=== PATIENT | female | born 2000 | race Caucasian/White ===

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

== ENCOUNTER 2021-04-13 22:29 | Emergency (ER) | payer MEDICAID, SELFPAY ==
[2021-04-13 22:30] VITALS: BP 137/81; PULSE 103; RESP 16; TEMP 36.2; O2SAT 98; BMI 23.7
--- NOTE | 2021-04-13 22:50 | EDS_ITS ---
HPI History of Present Illness Chief Complaint: Nausea/Vomiting/Diarrhea Informant: patient Onset/Context/Timing Onset: - (Worse today) Context: Gradual Onset Timing: Waxes and wanes Narrative Narrative: Patient presents secondary to nausea, vomiting, and diarrhea associated with epigastric pain. She states she has been having symptoms intermittently for the past couple months but they became much worse tonight. No fever or chills. She states that she eats a lot of hot sauce and spicy foods and thinks that is the cause of her symptoms. PFSH PFSH Home Medications omeprazole 20 mg PO DAILY 28 Days #28 cap 04/14/21 [Rx Last Taken Unknown] Allergy/AdvReac Type Severity Reaction Status Date / Time amoxicillin Allergy Hives Verified 04/13/21 22:30 venom-honey bee Allergy Other Verified 04/13/21 22:30 [bee venom (honey bee)] Social History Smoking Status: Never smoker ROS ROS ED Constitutional Constitutional ED: Denies chills or fever(s) Eyes Eyes: Denies change in vision ENT ENT ED: Denies sore throat Cardiovascular Cardiovascular: Denies chest pain Respiratory/Chest Respiratory/Chest: Denies cough or dyspnea Gastrointestinal Gastrointestinal: Reports abdominal pain, diarrhea, nausea and vomiting Genitourinary Genitourinary ED: Denies dysuria Musculoskeletal Musculoskeletal: Denies back pain Integumentary Denies rash Neurologic Neurologic: Denies headache(s) or weakness Allergic/Immunologic Allergic/Immunologic ED: Denies urticaria EXAM Physical Exam Const Vital Signs: 04/13/21 22:30 04/13/21 23:10 Temperature 97.2 F L Temperature Source Temporal Pulse Rate 103 H Respiratory Rate 16 16 Blood Pressure 137/81 H Blood Pressure Mean 99 Pulse Ox 98 Oxygen Delivery Method Room Air Positive well nourished and well developed General Appearance ED: well developed HEENT Reports normocephalic and head/scalp atraumatic Eyes PERRL and EOMs intact bilaterally Neck supple Chest Wall inspection of chest normal and palpation of chest normal Resp normal respiratory effort and clear to auscultation bilaterally Cardio regular rate and regular rhythm GI Auscultation: hypoactive bowel sounds Palpation: soft and tender epigastric (Mild tenderness in the epigastrium.); Negative for guarding or rebound tenderness present Extremity normal to inspection Neuro oriented x3 and no sensory deficits noted Sensorium / Orientation: alert Motor Exam: strength 5/5 throughout Psych mental status grossly normal Skin no rashes or lesions noted MDM MDM MDM Narrative Medical decision making narrative: Patient was given Bentyl and Protonix. Lab work obtained. Lab Data Labs: Laboratory Results - last 24 hr 04/13/21 04/13/21 23:02 23:02 WBC 7.0 RBC 4.28 Hgb 13.0 Hct 38.8 MCV 90.7 MCH 30.4 MCHC 33.5 RDW Std Deviation 40.6 RDW Coeff of Carrillo 12.3 Plt Count 216 MPV 10.0 Immature Gran % (Auto) 0.700 Neut % (Auto) 56.4 Lymph % (Auto) 36.2 [place] % (Auto) 6.0 Eos % (Auto) 0.6 Baso % (Auto) 0.1 Absolute Neuts (auto) 3.9 Absolute Lymphs (auto) 2.52 Nucleated RBC % 0 Sodium 140 Potassium 3.9 Chloride 106 Carbon Dioxide 30.0 Anion Gap 4 L BUN 16 Creatinine 0.95 Estim Creat Clear Calc 87.69 Est GFR (MDRD) Af Amer 96 Est GFR (MDRD) Non-Af 79 BUN/Creatinine Ratio 16.9 Glucose 119 H Calcium 9.1 Total Bilirubin 0.60 Direct Bilirubin 0.19 AST 33 ALT 22 Alkaline Phosphatase 26 L Total Protein 7.2 Albumin 3.9 Globulin 3.3 Lipase 73 Treatment and Re-Evaluation Comments:: Lab work unremarkable. On repeat evaluation she is resting comfortably. I believe she likely has either gastritis or gastric ulcer. She will be treated with Prilosec and referred to GI for follow-up as needed. Discharge Plan Triage Chief Complaint: Nausea/Vomiting/Diarrhea ED Provider: Rosette Mariano Dx/Rx/DC Orders Clinical Impression: Gastritis Instructions: ED PEPTIC ULCER vs GASTRITIS Prescriptions: New omeprazole 20 mg capsule,delayed release(DR/EC) 20 mg PO DAILY 28 Days Qty: 28 RF: 0 Primary Care Provider: Care Physician,No Primary Referrals: Friend,Enoch, DO [STAFF PHYSICIAN] - As Needed Care Physician,No Primary [Primary Care Provider] - Disposition Disposition: Home, Self Care
[2021-04-13] MEDS: Dicyclomine 10 MG Capsule 20 MG PO (23:04)
[2021-04-13 23:10] VITALS: RESP 16
[2021-04-13 23:26] LABS: Absolute Lymphocyte Count 2.52 X10^3/uL (0.83-4.51); Absolute Neutrophil Count 3.9 X10^3/uL (2.0-7.7); Basophil# 0.01 X10^3/uL; Basophil% 0.1 % (0-1); Eosinophil# 0.04 X10^3/uL; Eosinophils% 0.6 % (0-5); Hematocrit 38.8 % (37-47); Lymphocyte # 2.52 X10^3/ul (0.83-4.51); Lymphocyte % 36.2 % (19-41); Mean Corp Hgb Conc 33.5 g/dL (32-36); Mean Corpuscular Hgb 30.4 pg (27.0-32.0); Mean Corpuscular Volume 90.7 fL (81-99); Monocyte# 0.42 X10^3/uL; NRBC Flagged by Analyzer 0 % (0-5); Neutrophil # 3.93 X10^3/uL (2.7-7.7); Neutrophil % 56.4 % (47-70); Platelet Count 216 K/mm3 (150-450); RBC Distribution Width CV 12.3 % (11.6-14.6); RBC Distribution Width SD 40.6 fl (35.1-43.9); Red Blood Count 4.28 M/mm3 (4.2-5.4)
[2021-04-14] LABS: AST(SGOT) 33 U/L (15-37); Alanine Aminotransfer ALT/SGPT 22 U/L (13-56); Albumin, Serum 3.9 g/dL (3.2-5.0); Alkaline Phosphatase 26 U/L (45-117); Anion Gap 4 (5-15); BUN 16 mg/dL (7-18); BUN/Creat Ratio 16.9 RATIO (10-20); Bilirubin, Direct 0.19 mg/dL (0.00-0.30); Calcium,Total 9.1 mg/dL (8.5-10.1); Chloride 106 mmol/L (98-107); Creatinine, Serum 0.95 mg/dL (0.55-1.02); EST Glomerular Filtration Rate 79 mL/min (>60); Est Glom Filt Rate - Afr Amer 96 mL/min (>60); Estimated Creatinine Clearance 87.69 ml/min; Globulin 3.3 g/dL (2.2-4.2); Glucose 119 mg/dL (74-106); Lipase 73 U/L (73-393); Potassium 3.9 mmol/L (3.5-5.1); Protein, Total 7.2 g/dL (6.4-8.2); Sodium Level 140 mmol/L (136-145)
[2021-04-14 00:40] VITALS: BP 137/81; PULSE 103; RESP 16; TEMP 36.2; O2SAT 98
== END 2021-04-14 00:44 | disposition home or self-care (01) ==
PROVIDERS: Emergency Provider Emergency Medicine
DX: K29.70 Gastritis, unspecified, without bleeding (principal); Z79.899 Other long term (current) drug therapy
CPT/HCPCS: 80048; 80076; 83690; 85025; 96365; 99283; A4216

== ENCOUNTER 2021-06-17 20:30 | Emergency (ER) | payer MEDICAID, SELFPAY ==
[2021-06-17 20:30] VITALS: BP 114/74; PULSE 84; RESP 18; TEMP 36.6; O2SAT 100; BMI 20.9
[2021-06-17] MEDS: 0.9% Normal Saline 1,000 ML 1000 ML IV (22:27)
[2021-06-17] MEDS: Mag Hydrox/Al Hydrox/Simeth 30 ML UDC PO (22:27)
[2021-06-17 22:34] LABS: Absolute Lymphocyte Count 0.97 X10^3/uL (0.83-4.51); Absolute Neutrophil Count 9.3 X10^3/uL (2.0-7.7); Basophil# 0.02 X10^3/uL; Basophil% 0.2 % (0-1); Eosinophil# 0.05 X10^3/uL; Eosinophils% 0.5 % (0-5); Hematocrit 35.8 % (37-47); Hemoglobin 12.3 g/dL (12.0-15.0); Lymphocyte # 0.97 X10^3/ul (0.83-4.51); Lymphocyte % 8.9 % (19-41); Mean Corp Hgb Conc 34.4 g/dL (32-36); Mean Corpuscular Hgb 30.4 pg (27.0-32.0); Mean Corpuscular Volume 88.4 fL (81-99); Mean Platelet Vol. 10.5 fl (6.2-12.0); Monocyte# 0.48 X10^3/uL; Monocyte% 4.4 % (0-10); NRBC Flagged by Analyzer 0 % (0-5); Neutrophil # 9.32 X10^3/uL (2.7-7.7); Neutrophil % 85.8 % (47-70); Platelet Count 200 K/mm3 (150-450); RBC Distribution Width CV 11.9 % (11.6-14.6); RBC Distribution Width SD 38.1 fl (35.1-43.9); Red Blood Count 4.05 M/mm3 (4.2-5.4); White Blood Count 10.9 K/mm3 (4.4-11.0)
[2021-06-17 22:49] LABS: Internal QC Validated? YES +Cl - CLEAR BKGD; Pregnancy, Serum, hCG Quali. NEGATIVE Negative
[2021-06-17 22:51] LABS: ALB/GLOB Ratio 1.3 RATIO (0.9-2.4); AST(SGOT) 69 U/L (15-37); Alanine Aminotransfer ALT/SGPT 42 U/L (13-56); Albumin, Serum 3.8 g/dL (3.2-5.0); Alkaline Phosphatase 34 U/L (45-117); Anion Gap 6 (5-15); BUN 11 mg/dL (7-18); BUN/Creat Ratio 14.6 RATIO (10-20); Calcium,Total 9.2 mg/dL (8.5-10.1); Chloride 106 mmol/L (98-107); Creatinine, Serum 0.75 mg/dL (0.55-1.02); EST Glomerular Filtration Rate 103 mL/min (>60); Est Glom Filt Rate - Afr Amer 125 mL/min (>60); Estimated Creatinine Clearance 110.45 ml/min; Globulin 2.9 g/dL (2.2-4.2); Glucose 128 mg/dL (74-106); Lipase 80 U/L (73-393); Potassium 3.8 mmol/L (3.5-5.1); Protein, Total 6.7 g/dL (6.4-8.2); Sodium Level 139 mmol/L (136-145)
[2021-06-17 23:18] LABS: Bacteria 0 SEEN /hpf (None Seen); Mucous, Urine 0 SEEN /hpf (<or=2+); Red Blood Cells-Urine 0 SEEN /hpf (0-5); Squamous Epithelial Cells - UA 0 SEEN /hpf (5-10); White Blood Cells 0 SEEN /hpf (0-5)
[2021-06-17 23:26] LABS: Color, Urine Yellow (Yellow); Glucose, Dipstick Normal (Normal); Ketone-Dipstick Negative (Negative); Leukocyte Esterase-Dipstick Negative /ul (Negative); Nitrite-Dipstick Negative (Negative); Occult Blood-Urine Negative /ul (Negative); Protein-Dipstick 15 mg/dl (Negative); Urine Bilirubin Dipstick Negative (Negative); Urine Clarity Clear (Clear); Urine Urobilinogen Normal (Normal); Urine pH 6.5 (5.0 - 8.0)
--- NOTE | 2021-06-18 00:02 | ED.VIS.GI ---
HPI HPI - GI History of Present Illness Chief Complaint: Abd Pain Informant: patient Abdominal Pain/Flank Pain Onset: Hours (1) Context: Sudden Onset Timing: Continuous Quality: Burning Location: RUQ Worsened by: Nothing Relieved by: - (Vomiting, heating pad) Nausea/Vomiting/Emesis GI Symptom: Positive for Nausea and Vomiting Quality: Negative for Coffee ground and Hematemesis Diarrhea/Melena/Hematochezia GI Symptom: Negative for Diarrhea, Melena and Hematochezia Associated Symptoms Associated Symptoms: Negative for Dysuria, Frequency and Hematuria Narrative Narrative: Patient presents with abdominal pain that began approxi-1 hour prior to arrival. Patient states her pain is burning. Patient states it began rather suddenly. Patient states it has been constant. Patient states it is worse over the right upper quadrant. Patient states it is better after vomiting. Patient states that heating pad also helps with it. Patient admits to some nausea and vomiting. Patient denies any hematemesis or coffee-ground emesis. Patient denies any diarrhea, melena, or hematochezia. Patient denies any urinary complaints. [facility] Medical History Stomach ulcer Home Medications omeprazole 20 mg PO DAILY PRN 06/17/21 [History Last Taken Unknown] Allergy/AdvReac Type Severity Reaction Status Date / Time amoxicillin Allergy Hives Verified 06/17/21 20:33 venom-honey bee Allergy Other Verified 06/17/21 20:33 [bee venom (honey bee)] Social History Smoking Status: Current every day smoker tobacco type: e-cigarettes ROS ROS ED Constitutional Constitutional ED: Denies chills or fever(s) Eyes Eyes: Denies blurry vision or change in vision ENT ENT ED: Denies rhinorrhea or sore throat Cardiovascular Cardiovascular: Denies chest pain or palpitations Respiratory/Chest Respiratory/Chest: Denies cough or dyspnea Gastrointestinal Gastrointestinal: Reports abdominal pain, nausea and vomiting; Denies diarrhea or melena Genitourinary Genitourinary ED: Denies dysuria or hematuria Musculoskeletal Musculoskeletal: Denies back pain or neck pain Integumentary Denies abscess or rash Neurologic Neurologic: Denies headache(s) or weakness Allergic/Immunologic Allergic/Immunologic ED: Denies mouth swelling or urticaria EXAM Physical Exam Const Vital Signs: 06/17/21 20:30 Temperature 98 F Temperature Source Temporal Pulse Rate 84 Respiratory Rate 18 Blood Pressure 114/74 Blood Pressure Mean 87 Pulse Ox 100 Oxygen Delivery Method Room Air Positive well nourished and well developed General Appearance ED: well developed HEENT Reports moist mucous membranes Neck supple and no JVD Resp normal respiratory effort and clear to auscultation bilaterally Cardio regular rate, regular rhythm and no murmurs GI normal to inspection, nondistended, normoactive bowel sounds and non-distended Auscultation: normoactive bowel sounds Palpation: soft and tender RUQ; Negative for guarding or rebound tenderness present Extremity normal to inspection General Extremety ED: Negative for edema or tenderness General Extremity: Negative for edema Neuro oriented x3, CN's II-XII intact bilaterally and no sensory deficits noted Sensorium / Orientation: alert Motor Exam: strength 5/5 throughout Psych mental status grossly normal Skin no rashes or lesions noted MDM MDM MDM Narrative Medical decision making narrative: Patient was given IV fluids. Patient was given a GI cocktail. CBC was within normal limits. Comprehensive metabolic profile was normal. Lipase was normal. Serum hCG was negative. Urinalysis does not show any evidence of urinary tract infection. Patient was advised of her findings. Patient is feeling better on reevaluation. Patient was instructed to take her omeprazole daily as prescribed. Patient was instructed to follow-up with her primary care physician in 5 to 7 days. Patient understood and was agreeable with the plan. All questions were answered. Lab Data Attestation: I reviewed the patient's lab results. Labs: Laboratory Results - last 24 hr 06/17/21 06/17/21 06/17/21 22:28 22:28 22:28 WBC 10.9 RBC 4.05 L Hgb 12.3 Hct 35.8 L MCV 88.4 MCH 30.4 MCHC 34.4 RDW Std Deviation 38.1 RDW Coeff of Carrillo 11.9 Plt Count 200 MPV 10.5 Immature Gran % (Auto) 0.200 Neut % (Auto) 85.8 H Lymph % (Auto) 8.9 L [place] % (Auto) 4.4 Eos % (Auto) 0.5 Baso % (Auto) 0.2 Absolute Neuts (auto) 9.3 H Absolute Lymphs (auto) 0.97 Nucleated RBC % 0 Sodium 139 Potassium 3.8 Chloride 106 Carbon Dioxide 27.0 Anion Gap 6 BUN 11 Creatinine 0.75 Estim Creat Clear Calc 110.45 Est GFR (MDRD) Af Amer 125 Est GFR (MDRD) Non-Af 103 BUN/Creatinine Ratio 14.6 Glucose 128 H Calcium 9.2 Total Bilirubin 0.80 AST 69 H ALT 42 Alkaline Phosphatase 34 L Total Protein 6.7 Albumin 3.8 Globulin 2.9 Albumin/Globulin Ratio 1.3 Lipase 80 Serum , Qual NEGATIVE Urine Color Urine Clarity Urine pH Ur Specific [place] Urine Protein Urine Glucose (UA) Urine Ketones Urine Occult Blood Urine Nitrite Urine Bilirubin Urine Urobilinogen Ur Leukocyte Esterase Urine RBC Urine WBC Ur Squamous Epith Cells Urine Bacteria Urine Mucus 06/17/21 23:00 WBC RBC Hgb Hct MCV MCH MCHC RDW Std Deviation RDW Coeff of Carrillo Plt Count MPV Immature Gran % (Auto) Neut % (Auto) Lymph % (Auto) [place] % (Auto) Eos % (Auto) Baso % (Auto) Absolute Neuts (auto) Absolute Lymphs (auto) Nucleated RBC % Sodium Potassium Chloride Carbon Dioxide Anion Gap BUN Creatinine Estim Creat Clear Calc Est GFR (MDRD) Af Amer Est GFR (MDRD) Non-Af BUN/Creatinine Ratio Glucose Calcium Total Bilirubin AST ALT Alkaline Phosphatase Total Protein Albumin Globulin Albumin/Globulin Ratio Lipase Serum , Qual Urine Color Yellow Urine Clarity Clear Urine pH 6.5 Ur Specific [place] 1.010 Urine Protein 15 H Urine Glucose (UA) Normal Urine Ketones Negative Urine Occult Blood Negative Urine Nitrite Negative Urine Bilirubin Negative Urine Urobilinogen Normal Ur Leukocyte Esterase Negative Urine RBC 0 SEEN Urine WBC 0 SEEN Ur Squamous Epith Cells 0 SEEN Urine Bacteria 0 SEEN Urine Mucus 0 SEEN Discharge Plan Triage Chief Complaint: Abd Pain ED Provider: Zefreino Witt Dx/Rx/DC Orders Clinical Impression: Abdominal pain Instructions: ED Abdominal Pain Unkn Cause Fem, ED PEPTIC ULCER vs GASTRITIS Prescriptions: No Action omeprazole 20 mg capsule,delayed release(DR/EC) 20 mg PO DAILY PRN (Reason: Stomach Upset) RF: 0 Primary Care Provider: Mary Carpenter NP Referrals: Mary Carpenter RN OUTPATIENT SURGERY, RN OUTPATIENT SURGERY-C [Primary Care Provider] - 3-5 Days Disposition Disposition: Home, Self Care
== END 2021-06-18 00:12 | disposition home or self-care (01) ==
PROVIDERS: Emergency Provider Emergency Medicine; PCP Clinical Nurse Specialist
DX: R10.9 Unspecified abdominal pain (principal); R11.2 Nausea with vomiting, unspecified; F17.210 Nicotine dependence, cigarettes, uncomplicated
CPT/HCPCS: 80053; 81001; 83690; 84703; 85025; 96360; 99284; J7030; A4216

== ENCOUNTER 2021-09-13 07:41 | Observation (INO) | payer MEDICAID, SELFPAY ==
[2021-09-13 07:43] VITALS: BP 104/73; PULSE 67; RESP 17; TEMP 35.6; O2SAT 100; BMI 21.1
--- NOTE | 2021-09-13 08:21 | US_ITS ---
STUDY: ABDOMINAL ULTRASOUND - RIGHT UPPER QUADRANT REASON FOR VISIT: Female, 21 years old . Right upper quadrant pain. TECHNIQUE: Ultrasound evaluation of the right upper quadrant was performed with real-time and static lucas-scale imaging. TECHNICAL QUALITY: Adequate. COMPARISON: None. FINDINGS: Liver: The liver measures 15.1 cm. There is normal echogenicity of the liver. The bile ducts are within normal limits. There is hepatic color flow. The direction of portal flow is hepatopetal. There is no demonstrated mass lesion. Gallbladder: Normal distended gallbladder. The gallbladder wall is thickened and measures 4 mm. There is a positive sonographic Moralez''s sign. There is no pericholecystic fluid. There are multiple echogenic structures within the gallbladder, consistent with multiple gallstones. Common Bile Duct (C.B.D.): The common bile duct is dilated and measures 10 mm. Pancreas: Normal size of the head, body and tail of the pancreas. There is normal echogenicity of the pancreas. There is a 3.7 cm x 3.1 cm hypodensity in the tail portion the pancreas. Focal pancreatitis should be ruled out. Right Kidney: Normal size of the right kidney. The right kidney measures 12.1 cm x 4 cm x 3.5 cm. Normal renal cortex. The right cortex measures 1.5 cm. There is no demonstrated renal mass or cyst. There is no right hydronephrosis. US/Gallbladder IMPRESSION: Multiple gallstones and thickened gallbladder wall. Dilated common bile duct. 3.7 cm x 3.1 cm focal hypodensity in the tail portion of the pancreas. Localized pancreatitis should be ruled out. Electronically Signed: Wiley Hernandez MD at 9:25 EST ,
[2021-09-13 08:32] LABS: Absolute Lymphocyte Count 2.06 X10^3/uL (0.83-4.51); Basophil# 0.03 X10^3/uL; Basophil% 0.7 % (0-1); Eosinophil# 0.19 X10^3/uL; Eosinophils% 4.2 % (0-5); Hematocrit 38.1 % (37-47); Hemoglobin 12.6 g/dL (12.0-15.0); Lymphocyte # 2.06 X10^3/ul (0.83-4.51); Lymphocyte % 45.9 % (19-41); Mean Corp Hgb Conc 33.1 g/dL (32-36); Mean Corpuscular Hgb 30.6 pg (27.0-32.0); Mean Corpuscular Volume 92.5 fL (81-99); Mean Platelet Vol. 9.8 fl (6.2-12.0); Monocyte# 0.21 X10^3/uL; Monocyte% 4.7 % (0-10); NRBC Flagged by Analyzer 0 % (0-5); Neutrophil # 1.99 X10^3/uL (2.7-7.7); Neutrophil % 44.3 % (47-70); Platelet Count 168 K/mm3 (150-450); RBC Distribution Width CV 12.2 % (11.6-14.6); RBC Distribution Width SD 42.1 fl (35.1-43.9); Red Blood Count 4.12 M/mm3 (4.2-5.4); White Blood Count 4.5 K/mm3 (4.4-11.0)
[2021-09-13 08:42] LABS: ALB/GLOB Ratio 1.2 RATIO (0.9-2.4); AST(SGOT) 60 U/L (15-37); Alanine Aminotransfer ALT/SGPT 46 U/L (13-56); Albumin, Serum 3.7 g/dL (3.2-5.0); Alkaline Phosphatase 27 U/L (45-117); Anion Gap 6 (5-15); BUN 13 mg/dL (7-18); BUN/Creat Ratio 15.5 RATIO (10-20); Calcium,Total 9.1 mg/dL (8.5-10.1); Chloride 107 mmol/L (98-107); Creatinine, Serum 0.84 mg/dL (0.55-1.02); EST Glomerular Filtration Rate 91 mL/min (>60); Est Glom Filt Rate - Afr Amer 110 mL/min (>60); Estimated Creatinine Clearance 99.18 ml/min; Glucose 132 mg/dL (74-106); Lipase 92 U/L (73-393); Potassium 3.5 mmol/L (3.5-5.1); Protein, Total 6.7 g/dL (6.4-8.2); Sodium Level 142 mmol/L (136-145)
[2021-09-13 08:44] LABS: Internal QC Validated? YES +Cl - CLEAR BKGD; Pregnancy, Urine Negative Negative
--- NOTE | 2021-09-13 09:14 | ED.VIS.GI ---
HPI HPI - GI History of Present Illness Chief Complaint: Abd Pain Informant: patient Narrative Narrative: Patient is a 21 old female presenting with recurrent epigastric abdominal pain. Patient states has been having it off and on for some months. She is been seen in the ER and told she likely stomach ulcers and was put on omeprazole. She states she has been taking it intermittently lately is been having worsening abdominal pain. She states she feels fine right now however when she woke up this morning she was sweating and had nausea. No vomiting reported. States the pain is in her epigastric region and slightly to the right. She did take omeprazole this morning. She states the box and not to take it more than 6 weeks so she had stopped taking it recently. She is never seen a GI doctor or surgeon for her abdominal pain. Yesterday she notes she ate [employer] wings, 2 hotdogs and Scottish fries. She states normally her pain is worse in the evening and not usually bad in the morning. No other complaints at this time. [facility] Medical History (Updated 09/13/21 @ 15:[address] Amanda Britt DO) GERD (gastroesophageal reflux disease) Smoker Substance abuse Home Medications omeprazole 20 mg PO DAILY PRN 06/17/21 [History Last Taken 09/13/21] Hair,Nails and Skin Vitamin 1 tab PO/SL DAILY 09/13/21 [History Last Taken 09/13/21] Allergy/AdvReac Type Severity Reaction Status Date / Time amoxicillin Allergy Hives Verified 09/13/21 07:42 venom-honey bee Allergy Other Verified 09/13/21 07:42 [bee venom (honey bee)] Family History (Updated 09/13/21 @ 13:38 by Shantel Jesus) Other Family history of hypertension in father Social History Smoking Status: Heavy Smoker (>10/day) ROS ROS ED Constitutional Constitutional ED: Denies chills or fever(s) Cardiovascular Cardiovascular: Denies chest pain or palpitations Respiratory/Chest Respiratory/Chest: Denies dyspnea Gastrointestinal Gastrointestinal: Reports abdominal pain and nausea; Denies constipation, diarrhea or vomiting Genitourinary Genitourinary ED: Denies dysuria or hematuria Musculoskeletal Musculoskeletal: Denies arthralgias, back pain or myalgias Integumentary Denies rash Psychiatric Psychiatric: Denies depression EXAM Physical Exam Const Vital Signs: 09/13/21 07:43 09/13/21 10:22 09/13/21 12:13 Temperature 96.0 F L 98.1 F Temperature Source Temporal Oral Pulse Rate 67 81 67 Respiratory Rate 17 16 17 Blood Pressure 104/73 106/71 95/63 Blood Pressure Mean 83 82 73 Blood Pressure Source Blood Pressure Position Blood Pressure Location Pulse Ox 100 100 100 Oxygen Delivery Method Room Air Room Air Room Air 09/13/21 12:15 Temperature 98.0 F Temperature Source Oral Pulse Rate 67 Respiratory Rate 16 Blood Pressure 95/63 Blood Pressure Mean 73 Blood Pressure Source Monitor Blood Pressure Position Semi-Fowlers Blood Pressure Location Left Arm Pulse Ox 100 Oxygen Delivery Method Room Air Positive well nourished and well developed General Appearance ED: well developed and NAD HEENT normocephalic and atraumatic Eyes PERRL and EOMs intact bilaterally Neck supple and no JVD Resp normal respiratory effort and clear to auscultation bilaterally Cardio regular rate, regular rhythm and no murmurs GI non-tender and non-distended GI Narrative: Negative Moralez sign Auscultation: normoactive bowel sounds Palpation: soft; Negative for guarding or rigid Back/Spine no CVA tenderness Extremity full ROM General Extremety ED: Negative for edema General Extremity: Negative for edema Neuro Sensorium / Orientation: alert, oriented to person, oriented to place and oriented to time Motor Exam: Negative for general weakness Psych mental status grossly normal Skin Lesions: no lesions Rashes: no rashes MDM MDM MDM Narrative Medical decision making narrative: Patient evaluated for recurrent right upper quadrant/epigastric abdominal pain. Patient had a very fatty meal yesterday and had worsening pain today. She is never had any imaging of her abdomen so I will add on a right upper quadrant ultrasound. CT shows multiple gallstones with thickened gallbladder wall and dilated common bile duct as well as a questionable area of localized pancreatitis. CT obtained as patient does not know that she has had unintentional weight loss and has abnormal pancreatic findings on her ultrasounds. CT is consistent with gallstones, dilated common bile duct and hepatic system and a possible passed biliary stone. Patient does start to have more pain in the ER. Her lab work is largely unremarkable. She will be admitted for surgical management of cholecystitis to surgical service. She is agreeable this plan of care. Plan is for cholecystectomy and intraoperative cholangiogram. Lab Data Labs: Laboratory Results - last 24 hr 09/13/21 09/13/21 09/13/21 08:05 08:05 08:31 WBC 4.5 RBC 4.12 L Hgb 12.6 Hct 38.1 MCV 92.5 MCH 30.6 MCHC 33.1 RDW Std Deviation 42.1 RDW Coeff of Carrillo 12.2 Plt Count 168 MPV 9.8 Immature Gran % (Auto) 0.200 Neut % (Auto) 44.3 L Lymph % (Auto) 45.9 H [place] % (Auto) 4.7 Eos % (Auto) 4.2 Baso % (Auto) 0.7 Absolute Neuts (auto) 2.0 Absolute Lymphs (auto) 2.06 Nucleated RBC % 0 Sodium 142 Potassium 3.5 Chloride 107 Carbon Dioxide 29.0 Anion Gap 6 BUN 13 Creatinine 0.84 Estim Creat Clear Calc 99.18 Est GFR (MDRD) Af Amer 110 Est GFR (MDRD) Non-Af 91 BUN/Creatinine Ratio 15.5 Glucose 132 H Calcium 9.1 Total Bilirubin 0.70 AST 60 H ALT 46 Alkaline Phosphatase 27 L Total Protein 6.7 Albumin 3.7 Globulin 3.0 Albumin/Globulin Ratio 1.2 Lipase 92 Urine Test Negative Radiography Diagnostic Testing: Clinical Impression(s) from Imaging Studies Gallbladder Ultrasound 09/13/21 08:21 IMPRESSION: Multiple gallstones and thickened gallbladder wall. Dilated common bile duct. 3.7 cm x 3.1 cm focal hypodensity in the tail portion of the pancreas. Localized pancreatitis should be ruled out. Electronically Signed: Wiley Hernandez MD at 9:25 EST , Abdomen/Pelvis CT 09/13/21 10:01 IMPRESSION: Contracted stone filled gallbladder. Dilated intrahepatic biliary ducts. Dilated common bile duct down to the insertion into the second portion of the duodenum. There is a 6.5 mm rounded calcific density in the small bowel loop in the right mid abdomen. A recently passed gallstone should be excluded. This has the potential of causing gallstone ileus. Electronically Signed: Wiley Hernandez MD at 10:30 EST , Discharge Plan Dx/Rx/DC Orders Clinical Impression: Cholecystitis Disposition Disposition: Acute Care Hospital [facility] Discharge Date/Time: 09/13/21 12:44
[2021-09-13] MEDS: Ondansetron 4 MG/2 ML Vial IV ×2 (09:29→16:30)
--- NOTE | 2021-09-13 10:01 | CT_ITS ---
STUDY: CT ABDOMEN AND PELVIS WITH CONTRAST REASON FOR EXAM: Female, 21 years old. RUQ pain, abd normal US RADIATION DOSAGE (If Supplied By Facility): CTDIvol = ( 5.16 ) mGy, DLP = ( 275.11 ) mGycm TECHNIQUE: Transaxial images were obtained from the dome of the diaphragm to the symphysis pubis without oral contrast. IV 100mL Isovue-300 was administered. Sagittal and coronal images were reconstructed. Individualized dose optimization techniques were used for this CT. COMPARISON: None. FINDINGS: The visualized lung bases are unremarkable. The visualized portions of the heart are within normal limits. There is evidence of a dilated intrahepatic biliary ducts. Dilated common bile duct. And measures 1.3 cm maximum transverse dimension. It is dilated down to the second portion of the duodenum. A tiny stone in the distal portion of the common bile duct cannot be excluded. The gallbladder is contracted. Multiple stones are seen within the gallbladder lumen. There is a 6.5 mm rounded calcific density in the mid small bowel loop on the right side. A recently passed gallstone cannot be excluded. Normal spleen. Normal pancreas. Normal bilateral adrenal glands. Normal right kidney. Normal left kidney. Normal visualized stomach. Normal small intestine. Normal colon. The appendix is visualized and appears normal. Normal abdominal aorta. Normal inferior vena cava. Normal retroperitoneum. Normal urinary bladder. Follicles are seen in both ovaries. IUD is seen within the endometrium. Normal abdominal wall. Normal osseous structures. CT/Abdomen/Pelvis W IV Cont ONLY IMPRESSION: Contracted stone filled gallbladder. Dilated intrahepatic biliary ducts. Dilated common bile duct down to the insertion into the second portion of the duodenum. There is a 6.5 mm rounded calcific density in the small bowel loop in the right mid abdomen. A recently passed gallstone should be excluded. This has the potential of causing gallstone ileus. Electronically Signed: Wiley Hernandez MD at 10:30 EST ,
[2021-09-13] MEDS: Morphine 4 MG/ML Syringe IV (10:21)
[2021-09-13 10:22] VITALS: BP 106/71; PULSE 81; RESP 16; O2SAT 100
--- NOTE | 2021-09-13 11:54 | NURSING ---
MED SURG OBS BORTZ CHOLECYSTITIS
[2021-09-13 12:13] VITALS: BP 95/63; PULSE 67; RESP 17; TEMP 36.7; O2SAT 100
[2021-09-13 12:15] VITALS: BP 95/63; PULSE 67; RESP 16; TEMP 36.7; O2SAT 100; BMI 21.1
--- NOTE | 2021-09-13 12:30 | HP.PCM_ITS ---
HPI - General General Date of Admission: 09/13/21 HPI Narrative CRISTAL CEBALLOS, is a 21 F who presents with complaints of acute-onset RUQ/epigastric pain that awoke her out of sleep approximately 0600 this AM. Symptoms come after a BBQ meal for dinner yesterday. She states this is her 4th or 5th such episode with this complaint and she has had to present for ER evaluation each time due to the intensity. She believes the pain symptoms first began approximately of 2020. This pain is frequently associated with nausea and she had a bout of emesis earlier prior to her presentation. She admits that this pain has now largely resolved after morphine administration. Workup is remarkable for normal CBC without evidence of L shift, CMP with no transaminitis and low alk phos, normal lipase. RUQ US showed stone-filled gallbladder with thickened gallbladder wall and dilated common bile duct to 10mm. Mention was also made of a possible cyst within the pancreas. Patient notes that she has experienced a 30lbs weight loss since these symptoms started. She states this has been unintentional and she has been unable to fully explain this as losing her baby weight since she delivered her son 15months ago. She denies any associated food fear. CT Ab/Pelvis was obtained after the latter history was provided and to obtain valderrama detail on the pancreatic parenchyma. This showed dilation of the intra and extrahepatic biliary ducts with evidence of a radioopaque object transiting the right-sided small bowel consistent with a passed gallstone. [facility] Medical History (Updated 09/13/21 @ 14:[address] Sacha Martin MD) GERD (gastroesophageal reflux disease) Smoker Substance abuse Home Medications omeprazole 20 mg PO DAILY PRN 06/17/21 [History Last Taken 09/13/21] Hair,Nails and Skin Vitamin 1 tab PO/SL DAILY 09/13/21 [History Last Taken 09/13/21] Allergy/AdvReac Type Severity Reaction Status Date / Time amoxicillin Allergy Hives Verified 09/13/21 07:42 venom-honey bee Allergy Other Verified 09/13/21 07:42 [bee venom (honey bee)] Family History (Updated 09/13/21 @ 13:38 by Shantel Jesus) Other Family history of hypertension in father Social History Smoking Status: Heavy Smoker (>10/day) Vital Signs Vital Signs Vital Signs: 09/13/21 07:43 09/13/21 10:22 09/13/21 12:13 Temperature 96.0 F L 98.1 F Temperature Source Temporal Oral Pulse Rate 67 81 67 Respiratory Rate 17 16 17 Blood Pressure 104/73 106/71 95/63 Blood Pressure Mean 83 82 73 Blood Pressure Source Blood Pressure Position Blood Pressure Location Pulse Ox 100 100 100 Oxygen Delivery Method Room Air Room Air Room Air 09/13/21 12:15 Temperature 98.0 F Temperature Source Oral Pulse Rate 67 Respiratory Rate 16 Blood Pressure 95/63 Blood Pressure Mean 73 Blood Pressure Source Monitor Blood Pressure Position Semi-Fowlers Blood Pressure Location Left Arm Pulse Ox 100 Oxygen Delivery Method Room Air Weight Weight: 130 lb 11.746 oz Body Mass Index (BMI) 21.1 Physical Exam Const alert and oriented x3 Constitutional Narrative: mild distress/tearful GI GI Narrative: slender, no scars Inspection: Negative for abdominal distention Palpation: tender RUQ and Moralez's sign Results Lab / Micro Data Result Diagrams: 09/13/21 08:05 09/13/21 08:05 Labs: Laboratory Results - last 24 hr 09/13/21 08:05: WBC 4.5, RBC 4.12 L, Hgb 12.6, Hct 38.1, MCV 92.5, MCH 30.6, MCHC 33.1, RDW Std Deviation 42.1, RDW Coeff of Carrillo 12.2, Plt Count 168, MPV 9.8, Immature Gran % (Auto) 0.200, Neut % (Auto) 44.3 L, Lymph % (Auto) 45.9 H, [place] % (Auto) 4.7, Eos % (Auto) 4.2, Baso % (Auto) 0.7, Absolute Neuts (auto) 2.0, Absolute Lymphs (auto) 2.06, Nucleated RBC % 0 09/13/21 08:05: Sodium 142, Potassium 3.5, Chloride 107, Carbon Dioxide 29.0, Anion Gap 6, BUN 13, Creatinine 0.84, Estim Creat Clear Calc 99.18, Est GFR (MDRD) Af Amer 110, Est GFR (MDRD) Non-Af 91, BUN/Creatinine Ratio 15.5, Glucose 132 H, Calcium 9.1, Total Bilirubin 0.70, AST 60 H, ALT 46, Alkaline Phosphatase 27 L, Total Protein 6.7, Albumin 3.7, Globulin 3.0, Albumin/Globulin Ratio 1.2, Lipase 92 09/13/21 08:31: Urine Test Negative Radiology Impression Gallbladder Ultrasound 09/13/21 08:21 IMPRESSION: Multiple gallstones and thickened gallbladder wall. Dilated common bile duct. 3.7 cm x 3.1 cm focal hypodensity in the tail portion of the pancreas. Localized pancreatitis should be ruled out. Electronically Signed: Wiley Hernandez MD at 9:25 EST , Abdomen/Pelvis CT 09/13/21 10:01 IMPRESSION: Contracted stone filled gallbladder. Dilated intrahepatic biliary ducts. Dilated common bile duct down to the insertion into the second portion of the duodenum. There is a 6.5 mm rounded calcific density in the small bowel loop in the right mid abdomen. A recently passed gallstone should be excluded. This has the potential of causing gallstone ileus. Electronically Signed: Wiley Hernandez MD at 10:30 EST , Assessment & Plan Assessment/Plan (1) Cholecystitis: PLAN: Pt is 21 yo F w RUQ pain, N/V, cholelithiasis with GB wall thick ening and positive sonographic moralez sign. Furthermore, pt has dilation of intra and extrahepatic biliary ducts concerning for recent common duct obstruction. Given these findings I recommended admission with IV antibiotics and cholecystectomy with intraoperative cholangiogram. Patient is accepting of this recommendation and plan will be to proceed to OR tomorrow (09/14/21) for this procedure given that she is being bumped for a higher acuity patient. Charges/Coding Visit Charges Inpatient E&M: 02330 Init Hosp L2
--- NOTE | 2021-09-13 12:54 | EKG12_ITS ---
Test Reason : PRE OP Blood Pressure : / mmHG Vent. Rate : 051 BPM Atrial Rate : 051 BPM P-R Int : 094 ms QRS Dur : 086 ms QT Int : 452 ms P-R-T Axes : -03 054 056 degrees QTc Int : 416 ms Sinus bradycardia with short KS Otherwise normal ECG No previous ECGs available Confirmed by PARKER ESQUIVEL, WILY ([id number]), staff editor LYN AIKEN ([id number]) on 09/18/2021 11:28:48 AM Referred By: BRAYAN Confirmed By:WILY CANALES MD
[2021-09-13 13:07] VITALS: BMI 21.1
--- NOTE | 2021-09-13 14:47 | SUR.PREOP ---
patients surgery is being moved to 09/14/[address] Martin. patient transferred to bed and transported to [facility] – [place], [place]
[2021-09-13 14:48] VITALS: BMI 21.1
[2021-09-13] MEDS: 0.9% Normal Saline 1,000 ML 125 ML IV (15:12)
[2021-09-13] MEDS: Ciprofloxacin 400 MG/200 ML BAG 200 MG IV ×2 (15:12→20:53)
[2021-09-13 15:13] VITALS: BP 106/67; PULSE 64; RESP 16; TEMP 36.5; O2SAT 100
[2021-09-13 21:00] VITALS: BP 106/69; PULSE 68; RESP 16; TEMP 36.8; O2SAT 99
[2021-09-14] VITALS (10 sets, daily range): BP systolic 97–117; BP diastolic 56–78; PULSE 55–89; RESP 16–18; TEMP 36.3–37.4; O2SAT 93–100; BMI 21.1
--- NOTE | 2021-09-14 | GALL_PTH ---
PATIENT: CRISTAL CEBALLOS LOC: MS3 U#:[id number] AGE/SX: 21/F ROOM: MS315 RE09/13/[address]: Dr. Sacha Martin MD : [id number] BED: 1 DIS: 09/15/2021 SPEC #: [id number] RECD: 09/15/21 07:01 STATUS: IGLESIA BRUSHHoward #: [id number] PAVEL: 09/14/21 00:[address]: Sacha Martin DEPT: SURGICAL PATHOLOGY RECD BY: Craig Leon ENTERED: 09/15/21 10:07 SP TYPE: STAN YOUNG DR: IRAIS Turner Tissues: Gallbladder, NOS Procedures: Surgery Specimen Level III HEADER OPERATION: Laparoscopic cholecystectomy with IOC PRE-OP DIAGNOSIS: Cholecystitis TISSUE SUBMITTED: Gallbladder MICROSCOPIC DIAGNOSIS Gallbladder, cholecystectomy: Mild chronic cholecystitis and cholelithiasis. SJ:kirby 09/18/2021 MICROSCOPIC DESCRIPTION Slides are reviewed. GROSS DESCRIPTION Received is one container labeled with the patient's name and designated gallbladder. The specimen consists of a gallbladder measuring 12 cm in length and up to 4.5 cm in diameter. The external surface is pink-pires, smooth and glistening for the most part. Focally it is granular, hemorrhagic and contains cautery artifact. The gallbladder contains green-yellow mucoid bile and multiple irregular yellowish-green stones measuring in aggregate 4 x 3.5 x 0.5 cm and 0.2 to 0.5 cm in greatest dimension. The mucosa is bile-stained and without any mass lesions. The gallbladder wall measures up to 0.1 cm in thickness. Senior Telecommunications Specialist sections from the gallbladder and the cystic duct are submitted in one cassette. / SJ:rg 09/15/2021 :3 CPT: 44317
[2021-09-14] MEDS: 0.9% Normal Saline 1,000 ML 125 ML IV ×3 (01:03→17:01)
[2021-09-14 06:45] LABS: ALB/GLOB Ratio 1.2 RATIO (0.9-2.4); AST(SGOT) 144 U/L (15-37); Alanine Aminotransfer ALT/SGPT 246 U/L (13-56); Albumin, Serum 3.1 g/dL (3.2-5.0); Alkaline Phosphatase 34 U/L (45-117); Anion Gap 6 (5-15); BUN 8 mg/dL (7-18); BUN/Creat Ratio 11.6 RATIO (10-20); Calcium,Total 8.7 mg/dL (8.5-10.1); Chloride 112 mmol/L (98-107); Creatinine, Serum 0.69 mg/dL (0.55-1.02); EST Glomerular Filtration Rate 114 mL/min (>60); Est Glom Filt Rate - Afr Amer 138 mL/min (>60); Estimated Creatinine Clearance 120.74 ml/min; Globulin 2.6 g/dL (2.2-4.2); Glucose 86 mg/dL (74-106); Magnesium 1.9 mg/dL (1.6-2.6); Phosphorus 3.6 mg/dL (2.5-4.9); Potassium 3.6 mmol/L (3.5-5.1); Protein, Total 5.7 g/dL (6.4-8.2); Sodium Level 142 mmol/L (136-145)
--- NOTE | 2021-09-14 07:57 | PCM.PN.SRG ---
Subjective Subjective Patient seen and examined at bedside. She states she feels much better than yesterday with no recurrence of her acute pain. Her appetite has remained depressed but she denies any nausea with the liquids she tried yesterday. Her mother is present at bedside and offers a few questions regarding her daughter's diagnosis and care plan. Objective Data Objective Data Vital Signs: Vital Signs Temp Pulse Resp BP Pulse Ox 98.2 F 68 16 108/78 100 09/14/21 03:00 09/14/21 03:00 09/14/21 03:00 09/14/21 03:00 09/14/21 03:00 Oxygen Delivery Method Room Air Weight: 130 lb 11.746 oz Body Mass Index (BMI) 21.1 Intake & Output: Intake and Output for Last 24 Hours 09/12/21 09/13/21 09/14/21 23:59 23:59 23:59 Intake Total 502.08 / 502.08 997.92 / 997.92 Balance 502.08 / 502.08 997.92 / 997.92 Lab / Micro Data Result Diagrams: 09/13/21 08:05 09/14/21 05:49 Labs: Laboratory Results - last 24 hr 09/13/21 08:05: WBC 4.5, RBC 4.12 L, Hgb 12.6, Hct 38.1, MCV 92.5, MCH 30.6, MCHC 33.1, RDW Std Deviation 42.1, RDW Coeff of Carrillo 12.2, Plt Count 168, MPV 9.8, Immature Gran % (Auto) 0.200, Neut % (Auto) 44.3 L, Lymph % (Auto) 45.9 H, [place] % (Auto) 4.7, Eos % (Auto) 4.2, Baso % (Auto) 0.7, Absolute Neuts (auto) 2.0, Absolute Lymphs (auto) 2.06, Nucleated RBC % 0 09/13/21 08:05: Sodium 142, Potassium 3.5, Chloride 107, Carbon Dioxide 29.0, Anion Gap 6, BUN 13, Creatinine 0.84, Estim Creat Clear Calc 99.18, Est GFR (MDRD) Af Amer 110, Est GFR (MDRD) Non-Af 91, BUN/Creatinine Ratio 15.5, Glucose 132 H, Calcium 9.1, Total Bilirubin 0.70, AST 60 H, ALT 46, Alkaline Phosphatase 27 L, Total Protein 6.7, Albumin 3.7, Globulin 3.0, Albumin/Globulin Ratio 1.2, Lipase 92 09/13/21 08:31: Urine Test Negative 09/14/21 05:49: Sodium 142, Potassium 3.6, Chloride 112 H, Carbon Dioxide 24.0, Anion Gap 6, BUN 8, Creatinine 0.69, Estim Creat Clear Calc 120.74, Est GFR (MDRD) Af Amer 138, Est GFR (MDRD) Non-Af 114, BUN/Creatinine Ratio 11.6, Glucose 86, Calcium 8.7, Phosphorus 3.6, Magnesium 1.9, Total Bilirubin 0.80, AST 144 H, ALT 246 H, Alkaline Phosphatase 34 L, Total Protein 5.7 L, Albumin 3.1 L, Globulin 2.6, Albumin/Globulin Ratio 1.2 Micro: Microbiology 09/13/21 12:20 Nasal Secretion SARS-CoV-2 Antigen (Rapid) - Final Radiography Diagnostic Testing: Radiology Impression Gallbladder Ultrasound 09/13/21 08:21 IMPRESSION: Multiple gallstones and thickened gallbladder wall. Dilated common bile duct. 3.7 cm x 3.1 cm focal hypodensity in the tail portion of the pancreas. Localized pancreatitis should be ruled out. Electronically Signed: Wiley Hernandez MD at 9:25 EST , Abdomen/Pelvis CT 09/13/21 10:01 IMPRESSION: Contracted stone filled gallbladder. Dilated intrahepatic biliary ducts. Dilated common bile duct down to the insertion into the second portion of the duodenum. There is a 6.5 mm rounded calcific density in the small bowel loop in the right mid abdomen. A recently passed gallstone should be excluded. This has the potential of causing gallstone ileus. Electronically Signed: Wiley Hernandez MD at 10:30 EST , Physical Exam Const oriented x3 and no apparent distress Resp normal respiratory effort GI GI Narrative: nondistended, mild discomfort with palpation in the RUQ Assessment & Plan Assessment/Plan (1) Common bile duct dilatation: PLAN: dilated intra and extrahepatic ductwork as well as radio-opaque density in right abdomen consistent with possible passed gallstone. Patient does have mild transaminitis with CMP today. Planning for intraoperative cholangiogram during today's procedure to exclude any residual obstruction. (2) Cholecystitis: PLAN: 21 yo F w RUQ pain and thickened GB wall on US. Pain improved but discomfort remains. Plan to proceed to OR this afternoon for lap miriam with IOC. Charges/Coding Visit Charges Inpatient E&M: 65033 Subs Hosp L2
[2021-09-14] MEDS: 0.9% Saline Lock 10 ML Syringe IV ×2 (10:48→11:11)
--- NOTE | 2021-09-14 11:07 | CASEMGMT ---
Social Work Note SW reviewed chart. Pt with 15 month old baby and history of Meth Use. SW in to speak with pt. SW introduced self and role at [facility]. Pt is alert and orientated. Pt's fiance/boyfriend Emil in pt's room and pt gave this worker permission to speak to her in front of her guest. Pt confirms that she has a 15 month old baby boy named Rolo and the baby is currently staying with Emil's grandma while pt is at [facility]. Pt states that it is a safe environment. Pt states that she has everything that she needs for the baby. Pt states that she will smoke week and vape. Pt denied smoking in front of the baby. Pt states she never smokes in the house or in the car. Pt denied any Meth Use. Pt states that at 16 she ran away and was on Meth at that time but denied any current Meth use. Pt asked this worker why this worker came in to see her. SW explained that this worker needed to make sure her baby was safe and to inquire about pt's drug use. Pt states understanding, states that when she delivered her baby she was at [place] and tested positive so she had a CPS worker come out to the home initially and drug test. Pt states that that case has been closed with CPS and she has no active case CPS. Kaycee Simmons DESULFURIZER HAND, ASSISTANT TODDLER TEACHER
[2021-09-14] MEDS: Ciprofloxacin 400 MG/200 ML BAG 200 MG IV ×2 (11:09→22:12)
--- NOTE | 2021-09-14 14:30 | RAD_ITS ---
CLINICAL HISTORY: Female, 21 years old. Acute cholecystitis. Pain. PROCEDURE: Fluoroscopic guidance provided during an intraoperative cholangiogram. FLUOROSCOPY TIME (if supplied): 54.8 seconds TECHNIQUE: Fluoroscopic guidance was provided in the OR during performance of an intraoperative cholangiogram. 213 cine images demonstrate injection of contrast via a cystic duct stump. There is filling of the CBD which appears mildly prominent. There is questionable air bubble versus filling defect near the ampulla. Contrast extends backwards into a mildly distended common hepatic duct and intrahepatic ducts. There is no stricture. The study demonstrates free expression of contrast into the duodenum. Please refer to the operative report for further details. RAD/Cholangiogram/ O R,Initial IMPRESSION: Fluoroscopy provided during an intraoperative cholangiogram. Electronically Signed: Heath Ashraf DO at 16:57 EST ,
[2021-09-14] MEDS: Bupivacaine Mpf 0.5% 30 ML VIAL (15:12)
--- NOTE | 2021-09-14 16:00 | RAD_ITS ---
CLINICAL HISTORY: Female, 21 years old. Acute cholecystitis. PROCEDURE: Fluoroscopy provided during intraoperative cholangiogram. FLUOROSCOPY TIME (if supplied): Not provided. TECHNIQUE: Fluoroscopic guidance was provided in the OR during a intraoperative cholangiogram. The following study represents a second sequence following administration of GLUCAGON. 178 cine images demonstrate a well opacified biliary ductal system. There is mild prominence of the biliary ductal system particularly of the external ducts. Injection of contrast demonstrates spontaneous excretion of contrast into the duodenal. There is no visualized filling defects. Please refer to the operative report for further details. RAD/Cholangiogram O.R./Subsequent IMPRESSION: Fluoroscopy provided during an intraoperative cholangiogram. Electronically Signed: Heath Ashraf DO at 16:55 EST ,
--- NOTE | 2021-09-14 16:30 | OP.PCM_ITS ---
Report of Operation Date of Procedure: 09/14/21 Pre-Operative Diagnosis: 1. Cholecystitis 2. Dilated common bile duct with transaminitis suspicious for choledocholithiasis Post-Operative Diagnosis: Same Surgery/Procedure Performed:: Laparoscopic cholecystectomy with intraoperative cholangiogram Description of Surgical Findings:: ?Distended gallbladder with mild inflammatory changes ?Normal biliary anatomy with slightly attenuated cystic artery. ?Cholangiogram initially showing nonfilling of the duodenum. After glucagon administered there was antegrade flow into the duodenum without clear evidence of a filling defect but the flow was discontinuous. Surgeon: Sacha Martin refueling ramp supervisor: Re Arvizu Type of Anesthesia: General/Supplemental Anesthesiologist: Terrence Resendez Specimen's removed: Gallbladder Drains: NA Estimated Blood Loss (mL): 20 Description of Procedure: After proper identification in the preoperative holding area the patient was brought to the operating room where positioned supine on the operating room table. SCDs were placed and antibiotics were administered. General anesthesia was then induced. Patient's abdomen was prepped and draped in usual sterile fashion. A formal timeout was conducted to confirm both patient and the procedure. Procedure was begun with a supraumbilical incision which was extended deeply down to the level of the fascia. The fascia was elevated and incised, as well as the peritoneum. A finger sweep was performed to ensure there were no underlying adhesions and a 12 mm balloon trocar was inserted. Pneumoperitoneum was established at 15 mmHg. 2 additional trocars were placed in the epigastrium (5 mm) and in the right upper quadrant (5 mm). Inspection of the peritoneum revealed no inadvertent injury to the viscera below. The gallbladder was visualized with mild inflammation. The gallbladder fundus was then grasped and elevated cephalad. Then, using careful dissection the peritoneum was opened and the structures of the hepatocystic tria ngle were delineated. Once the critical view of safety was obtained, the cystic duct was proximally clipped and partially divided. A cholangiocatheter was fed into the proximal segment of the cystic duct and the Mccarty Reddell clamp was secured into place. A cholangiogram was then obtained showing a standard length cystic duct flowing into a common bile duct. Initially there appeared to be partial obstruction of the contrast into the duodenum with filling defects. Given this result, I asked anesthesia to administer 1 mg of glucagon and we then waited 5 minutes before reimaging the patient. This time there was complete opacity of the common bile duct, but the flow into the duodenum appeared discontinuous. There was also retrograde flow through the common hepatic duct into the right and left hepatic ducts. The proximal cystic duct was then doubly clipped and the same process was used for the cystic artery. The gallbladder was then removed from the gallbladder fossa with the use of electrocautery. The gallbladder was placed in an Endo Catch bag and removed from the peritoneum. Morison's pouch was irrigated and the effluent was suctioned free of the peritoneum. Hemostasis was confirmed on the gallbladder fossa. Pneumoperitoneum was evacuated and the fascia of the 12 mm port sites was closed with #1Vicryl in a [id number] fashion. A total of 20 mL of anesthetic was injected at the port sites for postoperative pain control. The skin of each port site was then closed in subcuticular fashion using 4-0 Monocryl. Steri- Strips and bandages were applied as dressings. Patient tolerated the procedure well without any apparent complications. On emergence from their anesthetic the patient was taken to PACU for ongoing recovery. Complications None Admit VTE Documentation VTE Present on Admission: Yes VTE Mechan Device Prophylaxis: SCD's VTE Pharm Prophylaxis ordered?: No Procedures Digestive 40xxx-49xxx: [id number] Laparo cholecystectomy/graph
[2021-09-14] MEDS: Acetaminophen 500 MG Tablet PO (18:02)
[2021-09-14] MEDS: oxyCODONE 5 MG Tablet PO (18:28)
[2021-09-15] MEDS: 0.9% Normal Saline 1,000 ML 125 ML IV (01:34)
[2021-09-15] MEDS: Acetaminophen 500 MG Tablet PO ×2 (01:36→07:51)
[2021-09-15] MEDS: oxyCODONE 5 MG Tablet PO ×2 (02:24→09:37)
[2021-09-15 04:00] VITALS: BP 105/68; PULSE 66; RESP 16; TEMP 37.1; O2SAT 99
[2021-09-15 06:24] LABS: Absolute Lymphocyte Count 1.14 X10^3/uL (0.83-4.51); Absolute Neutrophil Count 3.5 X10^3/uL (2.0-7.7); Basophil# 0.01 X10^3/uL; Basophil% 0.2 % (0-1); Hematocrit 32.2 % (37-47); Hemoglobin 10.6 g/dL (12.0-15.0); Lymphocyte # 1.14 X10^3/ul (0.83-4.51); Lymphocyte % 22.5 % (19-41); Mean Corp Hgb Conc 32.9 g/dL (32-36); Mean Corpuscular Hgb 30.8 pg (27.0-32.0); Mean Corpuscular Volume 93.6 fL (81-99); Mean Platelet Vol. 10.6 fl (6.2-12.0); Monocyte# 0.44 X10^3/uL; Monocyte% 8.7 % (0-10); NRBC Flagged by Analyzer 0 % (0-5); Neutrophil # 3.46 X10^3/uL (2.7-7.7); Neutrophil % 68.2 % (47-70); Platelet Count 148 K/mm3 (150-450); RBC Distribution Width CV 11.9 % (11.6-14.6); RBC Distribution Width SD 40.2 fl (35.1-43.9); Red Blood Count 3.44 M/mm3 (4.2-5.4); White Blood Count 5.1 K/mm3 (4.4-11.0)
[2021-09-15 06:52] LABS: ALB/GLOB Ratio 1.1 RATIO (0.9-2.4); AST(SGOT) 162 U/L (15-37); Alanine Aminotransfer ALT/SGPT 227 U/L (13-56); Albumin, Serum 3.1 g/dL (3.2-5.0); Alkaline Phosphatase 36 U/L (45-117); Anion Gap 5 (5-15); BUN 7 mg/dL (7-18); BUN/Creat Ratio 13.4 RATIO (10-20); Calcium,Total 8.3 mg/dL (8.5-10.1); Chloride 109 mmol/L (98-107); Creatinine, Serum 0.52 mg/dL (0.55-1.02); EST Glomerular Filtration Rate 156 mL/min (>60); Est Glom Filt Rate - Afr Amer 189 mL/min (>60); Estimated Creatinine Clearance 160.21 ml/min; Globulin 2.7 g/dL (2.2-4.2); Glucose 83 mg/dL (74-106); Magnesium 1.9 mg/dL (1.6-2.6); Phosphorus 3.6 mg/dL (2.5-4.9); Potassium 3.9 mmol/L (3.5-5.1); Protein, Total 5.8 g/dL (6.4-8.2); Sodium Level 137 mmol/L (136-145)
--- NOTE | 2021-09-15 07:44 | PCM.PN.SRG ---
Subjective Subjective Pt seen and examined during AM rounds. She describes initial postoperative discomfort but this responded well to PO pain meds ordered. No n/v in response to liquids. Objective Data Objective Data Vital Signs: Vital Signs Temp Pulse Resp BP Pulse Ox 98.8 F 66 16 105/68 99 09/15/21 04:00 09/15/21 04:00 09/15/21 04:00 09/15/21 04:00 09/15/21 04:00 Oxygen Delivery Method Room Air Weight: 130 lb 11.746 oz Body Mass Index (BMI) 21.1 Intake & Output: Intake and Output for Last 24 Hours 09/13/21 09/14/21 09/15/21 23:59 23:59 23:59 Intake Total 502.08 / 502.08 4650.00 / 4650.00 1000 / 1000 Output Total 800 / 800 Balance 502.08 / 502.08 3850.00 / 3850.00 1000 / 1000 Lab / Micro Data Result Diagrams: 09/15/21 06:00 09/15/21 06:00 Labs: Laboratory Results - last 24 hr 09/15/21 06:00: WBC 5.1, RBC 3.44 L, Hgb 10.6 L, Hct 32.2 L, MCV 93.6, MCH 30.8, MCHC 32.9, RDW Std Deviation 40.2, RDW Coeff of Carrillo 11.9, Plt Count 148 L, MPV 10.6, Immature Gran % (Auto) 0.400, Neut % (Auto) 68.2, Lymph % (Auto) 22.5, [place] % (Auto) 8.7, Eos % (Auto) 0.0, Baso % (Auto) 0.2, Absolute Neuts (auto) 3.5, Absolute Lymphs (auto) 1.14, Nucleated RBC % 0 09/15/21 06:00: Sodium 137, Potassium 3.9, Chloride 109 H, Carbon Dioxide 23.0, Anion Gap 5, BUN 7, Creatinine 0.52 L, Estim Creat Clear Calc 160.21, Est GFR (MDRD) Af Amer 189, Est GFR (MDRD) Non-Af 156, BUN/Creatinine Ratio 13.4, Glucose 83, Calcium 8.3 L, Phosphorus 3.6, Magnesium 1.9, Total Bilirubin 0.80, AST 162 H, ALT 227 H, Alkaline Phosphatase 36 L, Total Protein 5.8 L, Albumin 3.1 L, Globulin 2.7, Albumin/Globulin Ratio 1.1 Micro: Microbiology 09/13/21 12:20 Nasal Secretion SARS-CoV-2 Antigen (Rapid) - Final Radiography Diagnostic Testing: Radiology Impression Cholangiogram 09/14/21 14:30 IMPRESSION: Fluoroscopy provided during an intraoperative cholangiogram. Electronically Signed: Heath Ashraf at 16:57 EST Reading Location ID and State: [facility] / [place] Tel [phone], Service support , Cholangiogram,Operative 09/14/21 16:00 IMPRESSION: Fluoroscopy provided during an intraoperative cholangiogram. Electronically Signed: Heath AshrafDO at 16:55 EST Reading Location ID and State: [address] [place] [address] Tel [phone], Service support , Physical Exam Const no apparent distress Resp normal respiratory effort GI GI Narrative: non distended, surgical dressings in place with no strikethrough. soft, appropriately tender about incisions. Assessment & Plan Assessment/Plan (1) Cholecystitis: PLAN: POD 1 from lap miriam with IOC. Recovering appropriately. CMP stable from yesterday but cholangiogram (after glucagon) did not show filling defect. Hgb downtrended today but WBC and PLT counts are stable and HR is not elevated so I suspect hemodilution given the minimal losses during yesterday's procedure. Plan for DC later today (2) Common bile duct dilatation: PLAN: persistent dilation, but no evidence of filling defect on cholangiogram. Suspect intermittent flow related to inflammatory changes near Ampulla after passage of larger stone. Charges/Coding Visit Charges Inpatient E&M: 71539 Subs Hosp L2
[2021-09-15 07:46] VITALS: BP 113/68; PULSE 87; RESP 16; TEMP 36.5; O2SAT 99
--- NOTE | 2021-09-15 11:21 | PCM.DC ---
Discharge Instructions Diet Discharge Diet: No restrictions Activity Discharge Activity: May Not Drive (No driving while using narcotic pain medication) May shower in (days): 1 Ice area for (Minutes): 20 Dressing / Incision Call your doctor if your incision/area has: Continuous Slow Oozing, Sudden Increased Bleeding, Increased Pain/ Swelling, Increased Redness and Foul Smelling Discharge Call your doctor if you observe: Fever of 101 or Higher Remove Dressing in: 1 day Cleanse incision/area with: Soap & Water Additional Dressing/Incision Instructions:: Please leave Steri-Strips intact until they fall off spontaneously or are taken off at your follow-up visit Follow Up Care Please Follow Up With: Sacha Martin MD When: 1 week postop Test Results: Test results from this visit will be discussed in further detail at your follow-up appointment, if applicable. Discharge Plan Admission Admit Date/Time: 09/13/21 12:19 Primary Reason for Your Visit: Cholecystitis with choledocholithiasis Attending Provider: Sacha Martin Primary Care Provider: Mary Carpenter NP Instructions Patient Instructions: Cholecystectomy Laparoscopic Dc Discharge Orders/Prescriptions Prescriptions: New oxycodone 5 mg Tablet 5 mg PO Q6H PRN PRN (Reason: Pain Score 6-10) 7 Days Qty: 14 RF: 0 Continued omeprazole 20 mg capsule,delayed release(DR/EC) 20 mg PO DAILY PRN (Reason: Stomach Upset) RF: 0 Hair,Nails and Skin Vitamin 1 tab PO/SL DAILY RF: 0 Referrals / Follow Up: Mary Carpenter NP, [employer] [Primary Care Provider] -
--- NOTE | 2021-09-15 11:26 | PCM.DC.SUM ---
Providers Date of Admission: 09/13/21 Primary Care Physician: IRAIS Turner Reason For Visit: CHOLECYSTITIS Diagnosis Discharge Diagnosis (1) Cholecystitis: Status: Acute Code(s): K81.9 - Cholecystitis, unspecified (2) Common bile duct dilatation: Status: Acute Code(s): K83.8 - Other specified diseases of biliary tract Medications at Discharge Home Medications omeprazole 20 mg PO DAILY PRN 06/17/21 Hair,Nails and Skin Vitamin 1 tab PO/SL DAILY 09/13/21 oxycodone 5 mg PO Q6H PRN PRN 7 Days #14 tab 09/15/21 Hospital Course Operations cholecystecomy Summary of Care Provided Hospital Course: Patient is a 21-year-old female who was admitted on 09/13/2021 after she is diagnosed with cholecystitis and dilated common bile duct with evidence of recent passage of a gallstone into her bowel. She was recommended laparoscopic cholecystectomy with intraoperative cholangiogram, but unfortunately she had to be delayed until 09/14/2021 due to a another emergent case. She was placed on ciprofloxacin IV given possibility of persistent common duct obstruction. She then proceeded to the OR on 09/14/2021 for uncomplicated lap miriam with IOC. Cholangiogram showed cystic dilation of the intra and extrahepatic bile ducts. Initially there seemed to be some debris within the distal aspect of the duct, but glucagon 1 mg was administered and following a 5-minute wait. This debris appeared to clear and there was filling of the duodenum. The case concluded uneventfully and the patient was returned to the floor. She had some initial postoperative discomfort, but this was well managed with oral pain medications. This morning, postoperative day 1 her laboratories and her complete metabolic panel were stable and she was otherwise feeling better. She tolerated advancement of her diet to regular and requested discharge home. This was granted. Plan to follow-up with patient in 1 week with preclinic CMP (ordered). Physical Exam Const alert and oriented x3 General Appearance: cooperative GI non-distended Palpation: tender other (About incision sites) Weight / BMI Weight Weight: 130 lb 11.746 oz Body Mass Index (BMI) 21.1 ABG / Lab / Microbiology Data Result Diagrams: 09/15/21 06:00 09/15/21 06:00 Laboratory: Laboratory Results - last 24 hr 09/15/21 06:00: WBC 5.1, RBC 3.44 L, Hgb 10.6 L, Hct 32.2 L, MCV 93.6, MCH 30.8, MCHC 32.9, RDW Std Deviation 40.2, RDW Coeff of Carrillo 11.9, Plt Count 148 L, MPV 10.6, Immature Gran % (Auto) 0.400, Neut % (Auto) 68.2, Lymph % (Auto) 22.5, [place] % (Auto) 8.7, Eos % (Auto) 0.0, Baso % (Auto) 0.2, Absolute Neuts (auto) 3.5, Absolute Lymphs (auto) 1.14, Nucleated RBC % 0 09/15/21 06:00: Sodium 137, Potassium 3.9, Chloride 109 H, Carbon Dioxide 23.0, Anion Gap 5, BUN 7, Creatinine 0.52 L, Estim Creat Clear Calc 160.21, Est GFR (MDRD) Af Amer 189, Est GFR (MDRD) Non-Af 156, BUN/Creatinine Ratio 13.4, Glucose 83, Calcium 8.3 L, Phosphorus 3.6, Magnesium 1.9, Total Bilirubin 0.80, AST 162 H, ALT 227 H, Alkaline Phosphatase 36 L, Total Protein 5.8 L, Albumin 3.1 L, Globulin 2.7, Albumin/Globulin Ratio 1.1 Microbiology: Microbiology 09/13/21 12:20 Nasal Secretion SARS-CoV-2 Antigen (Rapid) - Final Radiography Diagnostic Testing: Radiology Impression Cholangiogram 09/14/21 14:30 IMPRESSION: Fluoroscopy provided during an intraoperative cholangiogram. Electronically Signed: Heath Ashraf DO at 16:57 EST Reading Location ID and State: [address] [place] [address] Tel [phone], Service support , Cholangiogram,Operative 09/14/21 16:00 IMPRESSION: Fluoroscopy provided during an intraoperative cholangiogram. Electronically Signed: Heath Ashraf DO at 16:55 EST Reading Location ID and State: [facility] / [place] Tel [phone], Service support , D/C Instructions Discharge Diet: No restrictions May shower in (days): 1 Ice area for (Minutes): 20 Call your doctor if your incision/area has: Continuous Slow Oozing, Sudden Increased Bleeding, Increased Pain/ Swelling, Increased Redness and Foul Smelling Discharge Call your doctor if you observe: Fever of 101 or Higher Cleanse incision/area with: Soap & Water Additional Dressing/Incision Instructions: Please leave Steri-Strips intact until they fall off spontaneously or are taken off at your follow-up visit Please Follow Up With: Sacha Martin MD When: 1 week postop Meaningful Use Info Meaningful Use Diagnoses (Choose all that apply): None applicable Discharge Plan Admission Admit Date/Time: 09/13/21 12:19 Primary Reason for Your Visit: Cholecystitis with choledocholithiasis Attending Provider: Sacha Martin Primary Care Provider: Mary Carpenter NP Instructions Patient Instructions: Cholecystectomy Laparoscopic Dc Discharge Orders/Prescriptions Prescriptions: New oxycodone 5 mg Tablet 5 mg PO Q6H PRN PRN (Reason: Pain Score 6-10) 7 Days Qty: 14 RF: 0 Continued omeprazole 20 mg capsule,delayed release(DR/EC) 20 mg PO DAILY PRN (Reason: Stomach Upset) RF: 0 Hair,Nails and Skin Vitamin 1 tab PO/SL DAILY RF: 0 Referrals / Follow Up: Mary Carpenter NP, [employer] [Primary Care Provider] - Disposition Disposition (needs filled in before D/C Order can be placed): Home, Self Care Charges/Coding Visit Charges Inpatient E&M: 95398 Disch Hosp
[2021-09-15 12:13] VITALS: BP 107/74; PULSE 60; RESP 16; TEMP 36.5; O2SAT 97
== END 2021-09-15 12:27 | disposition home or self-care (01) ==
LOC: ED 11:51 → MS3 12:46
PROVIDERS: Admitting Provider Surgery; Emergency Provider Emergency Medicine; PCP Clinical Nurse Specialist; Visit Provider Surgery
PROC: (CPT 47610; principal; 2021-09-14 14:10)
DX: K80.10 Calculus of gallbladder with chronic cholecystitis without obstruction (principal); F17.200 Nicotine dependence, unspecified, uncomplicated; K83.8 Other specified diseases of biliary tract; K21.9 Gastro-esophageal reflux disease without esophagitis
CPT/HCPCS: 47563; 00790; 36415; 74177; 74300; 74301; 76000; 76705; 80048; 80053; 81025; 83690; 83735; 84100; 85025; 87426; 88304; 93005; 96365; 96366; 96375; 96376; 97802; 99218; 99284; 99406; J7030; J7120; Q9967; A4216; G0378; J0744; J1610; J2405

== ENCOUNTER 2021-09-21 12:40 | Outpatient (CLI) | payer MEDICAID, SELFPAY ==
[2021-09-21 13:33] LABS: ALB/GLOB Ratio 1.2 RATIO (0.9-2.4); AST(SGOT) 33 U/L (15-37); Alanine Aminotransfer ALT/SGPT 118 U/L (13-56); Albumin, Serum 3.9 g/dL (3.2-5.0); Alkaline Phosphatase 38 U/L (45-117); Anion Gap 4 (5-15); BUN 16 mg/dL (7-18); BUN/Creat Ratio 24.7 RATIO (10-20); Calcium,Total 9.2 mg/dL (8.5-10.1); Chloride 105 mmol/L (98-107); Creatinine, Serum 0.65 mg/dL (0.55-1.02); EST Glomerular Filtration Rate 122 mL/min (>60); Est Glom Filt Rate - Afr Amer 148 mL/min (>60); Globulin 3.2 g/dL (2.2-4.2); Glucose 84 mg/dL (74-106); Potassium 4.2 mmol/L (3.5-5.1); Protein, Total 7.1 g/dL (6.4-8.2); Sodium Level 138 mmol/L (136-145)
== END 2021-09-21 23:59 | disposition home or self-care (01) ==
LOC: PAVLAB 12:41
PROVIDERS: PCP Clinical Nurse Specialist; Referring Provider Surgery; Visit Provider Surgery
DX: Z90.49 Acquired absence of other specified parts of digestive tract (principal)
CPT/HCPCS: 36415; 80053

== ENCOUNTER 2023-04-08 10:33 | Emergency (ER) | payer MEDICAID, SELFPAY ==
[2023-04-08 10:34] VITALS: BP 101/65; PULSE 116; RESP 19; TEMP 36.4; O2SAT 100; BMI 20.7
--- NOTE | 2023-04-08 11:34 | US_ITS ---
STUDY: ULTRASOUND OF THE FEMALE PELVIS - COMPLETE REASON FOR EXAM: Female, 23 years old. Pelvic pain LMP: April 01, 2023. TECHNIQUE: Transvaginal TECHNICAL QUALITY: Adequate. COMPARISON: None. FINDINGS: The uterus is anteverted and is in a midline position. The uterus measures 7.7 cm x 3.2 cm x 5.2 cm. Normal uterine cervix. The endometrium measures 7 mm in thickness, and is hyperechoic. There is no demonstrated endometrial mass. There is no demonstrated myometrial mass. I.U.D. - The patient does have an I.U.D.. The IUD is within the fundal portion of the endometrium. The right ovary is visualized. The right ovary measures 4.4 cm x 2.3 cm x 2.3 cm. There is no right ovarian cyst or ovarian mass. There is no visualized right adnexal mass or complex lesion. There is normal arterial and normal venous vascularity. The left ovary is visualized. The left ovary measures 3.6 cm x 2.5 cm x 1.5 cm. There is no left ovarian cyst or ovarian mass. There is no visualized left adnexal mass or complex lesion. There is normal arterial and normal venous vascularity. There is no fluid in the cul-de-sac. US/Transvaginal Non- IMPRESSION: The IUD is seen within the fundal portion of the endometrium. Electronically Signed: Wiley Hernandez MD at 14:04 EDT ,
[2023-04-08] MEDS: 0.9% Normal Saline (1000mL) 1,000 ML 1000 ML IV (11:49)
[2023-04-08 11:55] LABS: White Blood Cells 0 SEEN /hpf (0-5)
[2023-04-08 12:03] LABS: Color, Urine Yellow (Yellow); Glucose, Dipstick Normal (Normal); Ketone-Dipstick 15 mg/dl (Negative); Leukocyte Esterase-Dipstick Negative /ul (Negative); Nitrite-Dipstick Negative (Negative); Occult Blood-Urine 250 /ul (Negative); Protein-Dipstick 30 mg/dl (Negative); Urine Bilirubin Dipstick Negative (Negative); Urine Clarity Sl. Cloudy (Clear); Urine Urobilinogen Normal (Normal)
[2023-04-08 12:05] LABS: Absolute Lymphocyte Count 0.51 X10^3/uL (0.83-4.51); Absolute Neutrophil Count 7.6 X10^3/uL (2.0-7.7); Basophil# 0.01 X10^3/uL; Basophil% 0.1 % (0-1); Hematocrit 39.2 % (37-47); Hemoglobin 12.9 g/dL (12.0-15.0); Lymphocyte # 0.51 X10^3/ul (0.83-4.51); Lymphocyte % 5.9 % (19-41); Mean Corp Hgb Conc 32.9 g/dL (32-36); Mean Corpuscular Volume 91.2 fL (81-99); Mean Platelet Vol. 9.7 fl (6.2-12.0); Monocyte# 0.53 X10^3/uL; Monocyte% 6.1 % (0-10); NRBC Flagged by Analyzer 0 % (0-5); Neutrophil # 7.58 X10^3/uL (2.7-7.7); Neutrophil % 87.6 % (47-70); POSITIVE DIFFERENTIAL YES; Platelet Count 190 K/mm3 (150-450); RBC Distribution Width CV 12.1 % (11.6-14.6); RBC Distribution Width SD 40.3 fl (35.1-43.9); White Blood Count 8.7 K/mm3 (4.4-11.0)
[2023-04-08 12:11] LABS: Bacteria 1+ /hpf (None Seen); Mucous, Urine 1+ /hpf (<or=2+); Red Blood Cells-Urine 25-50 SEEN /hpf (0-5); Squamous Epithelial Cells - UA 0-5 SEEN /hpf (5-10)
[2023-04-08 12:11] LABS: Anion Gap 8 (5-15); BUN 8 mg/dL (7-18); BUN/Creat Ratio 9.5 RATIO (10-20); Calcium,Total 8.9 mg/dL (8.5-10.1); Chloride 105 mmol/L (98-107); Creatinine, Serum 0.84 mg/dL (0.55-1.02); EST Glomerular Filtration Rate 90 mL/min (>60); Est Glom Filt Rate - Afr Amer 108 mL/min (>60); Estimated Creatinine Clearance 96.07 ml/min; Glucose 117 mg/dL (74-106); Potassium 3.2 mmol/L (3.5-5.1); Sodium Level 139 mmol/L (136-145)
[2023-04-08 12:12] LABS: Internal QC Validated? YES +Cl - CLEAR BKGD; Pregnancy, Urine Negative Negative; Record Kit Lot#,Urine Preg HCG0000667200
[2023-04-08 12:15] LABS: Differential Indicated SCAN CRITERIA MET
[2023-04-08] MEDS: Ketorolac 15 MG/ML Vial IV (12:20)
--- NOTE | 2023-04-08 12:20 | EX.ED.DYSGE1 ---
HPI <IRAIS Delgado - Last Filed: 04/08/23 14:53> History of Present Illness Chief Complaint: Abd Pain Narrative Narrative: Patient is a 23-year-old female that is currently on her menstrual cycle who is a 1 para 1 who presents to the emergency department for multiple complaints. Patient states that she has been having pain to her suprapubic area, she is having intermittent bleeding. She is also having bleeding and pain with sex. Patient states that she has been bleeding during sex for the last 6 months. She does not have an DOOR OPERATOR. She did have an IUD placed 3 years ago after her son was born. She currently has not followed up anything. Patient denies any fever or chills. Patient Nuys any nausea or vomiting PFSH <IRAIS Delgado - Last Filed: 04/08/23 14:53> [facility] Medical History (Updated 04/08/23 @ 14:53 by IRAIS Delgado) GERD (gastroesophageal reflux disease) Physical exam, pre-employment Smoker Substance abuse Home Medications NK 04/08/23 [History Last Taken Unknown] Allergy/AdvReac Type Severity Reaction Status Date / Time amoxicillin Allergy Hives Verified 04/08/23 10:36 venom-honey bee Allergy Other Verified 04/08/23 10:36 [bee venom (honey bee)] Family History Other Family history of hypertension in father Surgical History History of laparoscopic cholecystectomy Social History Smoking Status: Current every day smoker tobacco type: e-cigarettes ROS <IRAIS Delgado - Last Filed: 04/08/23 14:53> ROS ED ROS Narrative Constitutional: Negative for fever, chills, weight loss, weakness Eyes: Negative for vision loss, vision change, double vision ENT: Negative for any sore throat, ear pain, congestion Cardiovascular: Negative for any chest pain, tightness, palpitations Respiratory: Negative for any cough, sputum production, hemoptysis, dyspnea, dyspnea on exertion, orthopnea Gastrointestinal: Negative for any nausea, vomiting, diarrhea, constipation, blood in stool, blood in vomit. Positive suprapubic pain : Negative for any urinary frequency, dysuria, retention, blood in urine Muscle skeletal: Negative for any muscle joint pain, stiffness, myalgias, arthralgias, neck pain, back pain Neurological: Negative for any headache, syncope, numbness or tingling, dizziness Skin: Negative for any rashes, lumps, itching, abrasions, lacerations Psychiatric: Negative for any depression, anxiety, stress, suicidal ideation, homicidal ideation Hematologic: Negative for any easy bruising, excessive bruising, easy bleeding Allergies: Negative for any eczema, hives, rash EXAM <IRAIS Delgado - Last Filed: 04/08/23 14:53> Physical Exam Narrative Exam Narrative: Vital signs reviewed. HEET: Head normocephalic atraumatic, TMs clear bilaterally. Posterior pharynx is clear, moist mucous membranes. Nares clear bilaterally. Neck: Supple with no lymphadenopathy or tenderness. No signs of meningismus, negative jolt sign. Cardiac: Regular rate and rhythm no murmurs gallops or rubs, equal peripheral pulses bilaterally. Respiratory: Lungs clear to auscultation bilaterally. No chest tenderness. Abdomen: Soft, nondistended. No abdominal bruit or pulsatile masses. No hepatosplenomegaly. Positive for pain to the suprapubic area worse on the left than the right. No peritoneal signs. Extremities: No peripheral edema, no signs of gross trauma or deformity. Active full range of motion of all extremities. Neuro: Cranial nerves II through XII intact, no focal neurological deficits. Skin: Clean dry and intact with no rash, purpura, petechiae, vesicles or pustules. Backs/flank: No CVA tenderness, no midline spinal tenderness, no deformity. Psych: Normal mood and affect. No SI, HI or acute psychosis. Const Vital Signs: 04/08/23 10:34 04/08/23 13:00 Temperature 97.6 F L Temperature Source Temporal Pulse Rate 116 H 78 Respiratory Rate 19 H 16 Blood Pressure 101/65 108/68 Blood Pressure Mean 77 81 Pulse Ox 100 98 Oxygen Delivery Method Room Air Room Air <Dr. Gerardo Alicea DO - Last Filed: 04/08/23 15:05> Physical Exam Const Vital Signs: 04/08/23 10:34 04/08/23 13:00 Temperature 97.6 F L Temperature Source Temporal Pulse Rate 116 H 78 Respiratory Rate 19 H 16 Blood Pressure 101/65 108/68 Blood Pressure Mean 77 81 Pulse Ox 100 98 Oxygen Delivery Method Room Air Room Air [facility] <IRAIS Delgado - Last Filed: 04/08/23 14:53> [facility] Lab Data Labs: Laboratory Results - last 24 hr 04/08/23 04/08/23 11:44 11:46 WBC 8.7 RBC 4.30 Hgb 12.9 Hct 39.2 MCV 91.2 MCH 30.0 MCHC 32.9 RDW Std Deviation 40.3 RDW Coeff of Carrillo 12.1 Plt Count 190 MPV 9.7 Immature Gran % (Auto) 0.300 Neut % (Auto) 87.6 H Lymph % (Auto) 5.9 L [place] % (Auto) 6.1 Eos % (Auto) 0.0 Baso % (Auto) 0.1 Absolute Neuts (auto) 7.6 Absolute Lymphs (auto) 0.51 L Nucleated RBC % 0 Differential Comment SCANNED Sodium 139 Potassium 3.2 L Chloride 105 Carbon Dioxide 26.0 Anion Gap 8 BUN 8 Creatinine 0.84 Estim Creat Clear Calc 96.07 Est GFR (MDRD) Af Amer 108 Est GFR (MDRD) Non-Af 90 BUN/Creatinine Ratio 9.5 L Glucose 117 H Calcium 8.9 Urine Color Yellow Urine Clarity Sl. Cloudy Urine pH 6.0 Ur Specific [place] 1.020 Urine Protein 30 H Urine Glucose (UA) Normal Urine Ketones 15 H Urine Occult Blood 250 H Urine Nitrite Negative Urine Bilirubin Negative Urine Urobilinogen Normal Ur Leukocyte Esterase Negative Urine RBC 25-50 SEEN Urine WBC 0 SEEN Ur Squamous Epith Cells 0-5 SEEN Urine Bacteria 1+ Urine Mucus 1+ Urine Test Negative Radiography Diagnostic Testing: Clinical Impression(s) from Imaging Studies Transvaginal US 04/08/23 11:34 IMPRESSION: The IUD is seen within the fundal portion of the endometrium. Electronically Signed: Wiley Hernandez MD at 14:04 EDT , Treatment and Re-Evaluation :: Patient appears in no obvious distress. Patient presents to the emerged part for suprapubic area. Patient is also concerned for painful sex as well as bleeding after sex. She is also concerned about her IUD. Patient will receive basic laboratory values, she will receive IV fluids, Toradol. She will see a urinalysis urine , she will receive transvaginal ultrasound concerning for any endometriosis, ovarian torsion, hemorrhagic cyst. Patient urinalysis shows 25-50 red blood cells, 1+ bacteria, no nitrates, leukocyte Estrace. No signs or symptoms of gross infection. Patient's laboratory values show a normal CBC, hemoglobin 12.9. Patient's chemistries show slight low potassium at 3.2, she was replaced here orally. Patient did receive a transvaginal ultrasound, this showed that the IUD was seen in the fundal portion of the endometrium which is in the normal spot. There is no fluid in the cul-de-sac. No mass or complex lesion to the ovaries. At this time, I do believe the patient is stable for discharge but she does need to follow-up with DOOR OPERATOR. I will be given her DOOR OPERATOR follow-up. All questions are answered, patient is stable for discharge. <Dr. Gerardo Alicea, DO - Last Filed: 04/08/23 15:05> [facility] Lab Data Attestation: I reviewed the patient's lab results. Labs: Laboratory Results - last 24 hr 04/08/23 04/08/23 11:44 11:46 WBC 8.7 RBC 4.30 Hgb 12.9 Hct 39.2 MCV 91.2 MCH 30.0 MCHC 32.9 RDW Std Deviation 40.3 RDW Coeff of Carrillo 12.1 Plt Count 190 MPV 9.7 Immature Gran % (Auto) 0.300 Neut % (Auto) 87.6 H Lymph % (Auto) 5.9 L [place] % (Auto) 6.1 Eos % (Auto) 0.0 Baso % (Auto) 0.1 Absolute Neuts (auto) 7.6 Absolute Lymphs (auto) 0.51 L Nucleated RBC % 0 Differential Comment SCANNED Sodium 139 Potassium 3.2 L Chloride 105 Carbon Dioxide 26.0 Anion Gap 8 BUN 8 Creatinine 0.84 Estim Creat Clear Calc 96.07 Est GFR (MDRD) Af Amer 108 Est GFR (MDRD) Non-Af 90 BUN/Creatinine Ratio 9.5 L Glucose 117 H Calcium 8.9 Urine Color Yellow Urine Clarity Sl. Cloudy Urine pH 6.0 Ur Specific [place] 1.020 Urine Protein 30 H Urine Glucose (UA) Normal Urine Ketones 15 H Urine Occult Blood 250 H Urine Nitrite Negative Urine Bilirubin Negative Urine Urobilinogen Normal Ur Leukocyte Esterase Negative Urine RBC 25-50 SEEN Urine WBC 0 SEEN Ur Squamous Epith Cells 0-5 SEEN Urine Bacteria 1+ Urine Mucus 1+ Urine Test Negative Radiography Diagnostic Testing: Clinical Impression(s) from Imaging Studies Transvaginal US 04/08/23 11:34 IMPRESSION: The IUD is seen within the fundal portion of the endometrium. Electronically Signed: Wiley Hernandez MD at 14:04 EDT , Treatment and Re-Evaluation :: Patient appears in no obvious distress. Patient presents to the emerged part for suprapubic area. Patient is also concerned for painful sex as well as bleeding after sex. She is also concerned about her IUD. Patient will receive basic laboratory values, she will receive IV fluids, Toradol. She will see a urinalysis urine , she will receive transvaginal ultrasound concerning for any endometriosis, ovarian torsion, hemorrhagic cyst. Patient urinalysis shows 25-50 red blood cells, 1+ bacteria, no nitrates, leukocyte Estrace. No signs or symptoms of gross infection. Patient's laboratory values show a normal CBC, hemoglobin 12.9. Patient's chemistries show slight low potassium at 3.2, she was replaced here orally. Patient did receive a transvaginal ultrasound, this showed that the IUD was seen in the fundal portion of the endometrium which is in the normal spot. There is no fluid in the cul-de-sac. No mass or complex lesion to the ovaries. At this time, I do believe the patient is stable for discharge but she does need to follow-up with DOOR OPERATOR. I will be given her DOOR OPERATOR follow-up. All questions are answered, patient is stable for discharge. I have personally performed a face to face assessment of the patient and have reviewed the NICKY Note. I performed a substantive portion of the visit including all aspects of the following. My garces findings include: History is patient reports dyspareunia and bleeding with intercourse. This been going on and not an acute development. There is concern for IUD displacement. Patient has not seen gynecology for this. Exam is nonfocal Medical Decison Making ultrasound negative. Potassium 3.2. I think the patient should follow-up with gynecology. She is got . No evidence of a UTI at this time. Discharge Plan Triage Chief Complaint: Abd Pain ED Midlevel Provider: Darrick Dean ED Provider: Gerardo Alicea Dx/Rx/DC Orders Clinical Impression: Dysmenorrhea, unspecified, Abnormal vaginal bleeding Instructions: Hormones Control Your ..., ED Dysfunctional Uterine Bleeding, ED MENSTRUAL CRAMPING Prescriptions: No Action NK Primary Care Provider: Care Physician,No Primary Referrals: María Verduzco DO [Med Staff - Active Staff] - Care Physician,No Primary [Primary Care Provider] - Activity Restrictions/Additional Instructions: Please follow-up with DOOR OPERATOR. Return here for worsening symptoms Disposition Disposition: Home, Self Care Discharge Date/Time: 04/08/23 14:58
[2023-04-08] MEDS: Potassium Chloride Oral Tablet 20 MEQ 40 MEQ PO (12:23)
[2023-04-08 13:00] VITALS: BP 108/68; PULSE 78; RESP 16; O2SAT 98
[2023-04-08 13:17] LABS: Differential Comment SCANNED
== END 2023-04-08 14:58 | disposition home or self-care (01) ==
PROVIDERS: Nurse Practitioner; Emergency Provider Emergency Medicine; Visit Provider Emergency Medicine
DX: N93.9 Abnormal uterine and vaginal bleeding, unspecified (principal); N94.6 Dysmenorrhea, unspecified; F17.210 Nicotine dependence, cigarettes, uncomplicated; K21.9 Gastro-esophageal reflux disease without esophagitis; Z90.49 Acquired absence of other specified parts of digestive tract; Z97.5 Presence of (intrauterine) contraceptive device
CPT/HCPCS: 76830; 80048; 81001; 81025; 85025; 96361; 96374; 99284; J7030; A4216

== ENCOUNTER 2024-05-31 10:53 | Emergency (ER) | payer MEDICAID, SELFPAY ==
[2024-05-31 10:54] VITALS: BP 101/89; PULSE 88; RESP 16; TEMP 36.4; O2SAT 99; BMI 25.2
--- NOTE | 2024-05-31 11:59 | EDS_ITS ---
HPI History of Present Illness HPI Narrative: Patient presents with right knee pain that began after a fall yesterday. Patient states she landed directly on her right knee. Patient states her pain is worse today. Patient states she was using some lidocaine patches yesterday which helped. Patient states the pain is worse with standing. Patient states it feels like her knee will give out when she stands up. Patient denies any paresthesias or weakness. Patient denies any other injuries. Chief Complaint: Lower Extremity Injury Informant: patient Occured/Mechanism Mechanism/Context: Yes fall Onset/Context/Timing Onset: Yesterday Context: Sudden Onset Timing: Continuous Quality of Pain: Stabbing Location: Right knee Worsened by: Standing Relieved by: Lidocaine patches Associated Symptoms Associated Symptoms: Negative for Parasthesia, Weakness or Loss of Funtion [facility] Medical History Physical exam, pre-employment Substance abuse Smoker GERD (gastroesophageal reflux disease) Home Medications ?Medication ?Instructions ?Recorded ?Last Taken ?Type NK 04/08/23 Unknown History Allergy/AdvReac Type Severity Reaction Status Date / Time amoxicillin Allergy Hives Verified 05/31/24 10:54 venom-honey bee (bee venom Allergy Other Verified 05/31/24 10:54 (honey bee)) Family History Other Family history of hypertension in father Surgical History History of laparoscopic cholecystectomy Social History Smoking Status: Current every day smoker tobacco type: e-cigarettes ROS ROS ED Constitutional Constitutional ED: Denies chills or fever(s) Eyes Eyes: Denies blurry vision or change in vision ENT ENT ED: Denies rhinorrhea or sore throat Cardiovascular Cardiovascular: Denies chest pain or palpitations Respiratory/Chest Respiratory/Chest: Denies cough or dyspnea Gastrointestinal Gastrointestinal: Denies nausea or vomiting Genitourinary Genitourinary ED: Denies dysuria or hematuria Musculoskeletal Musculoskeletal: Denies back pain or neck pain Integumentary Denies abscess or rash Neurologic Neurologic: Denies headache(s) or weakness Allergic/Immunologic Allergic/Immunologic ED: Denies mouth swelling or urticaria EXAM Physical Exam Const Vital Signs: 05/31/24 10:54 Temperature 97.6 F L Temperature Source Oral Pulse Rate 88 Respiratory Rate 16 Blood Pressure 101/89 H Blood Pressure Mean 93 Pulse Ox 99 Oxygen Delivery Method Room Air Positive well nourished and well developed General Appearance ED: well developed and NAD HEENT Reports moist mucous membranes Neck full ROM and supple Extremity Extremity Narrative: There is tenderness, edema, ecchymosis over the anterior aspect of the right knee. There is mild tenderness along the medial joint line. There is no bony crepitance or step-off. There is some mild laxity with varus and valgus stress testing. There is negative Geremias's testing. Sensation was intact to light touch bilaterally in lower extremities. Pedal pulses are equal bilaterally. Strength is 5/5 bilateral in the lower extremities. Extensor mechanism is intact. Neuro oriented x3, CN's II-XII intact bilaterally, moves all extremities and no sensory deficits noted Sensorium / Orientation: alert Motor Exam: strength 5/5 throughout Psych mental status grossly normal MDM MDM MDM Narrative Medical decision making narrative: Differential diagnosis includes fracture, contusion, sprain, and meniscus tear. X-rays of the right knee will be obtained to assess for fracture and joint effusion. Radiography Diagnostic Testing: X-rays of the right knee were obtained. There are 4 views. On my independent interpretation, there is a transverse fracture of the patella. There is no displacement. Radiologist also interpreted the x-rays and agrees. Treatment and Re-Evaluation Narrative: Nicotine cessation was discussed. Patient was advised of her findings. Patient was given a knee immobilizer. Patient was given crutches. Patient was instructed to ice and elevate her right knee. Patient was instructed to follow- up with her primary care physician in 5 to 7 days. Patient understood and was agreeable with the plan. All questions were answered. Discharge Plan Triage Chief Complaint: Lower Extremity Injury ED Provider: Zeferino Witt Dx/Rx/DC Orders Clinical Impression: Right patella fracture, Fall, Nicotine use Instructions: ED Patella Fracture Prescriptions: No Action NK Stand Alone Forms: Work Status Form Primary Care Provider: Care Physician,No Primary Referrals: Nolberto Poe MD [Med Staff - Active Staff] - 3-5 Days Care Physician,No Primary [Primary Care Provider] - Print Language: American Disposition Disposition: Home, Self Care
--- NOTE | 2024-05-31 12:10 | RAD_ITS ---
STUDY: X-RAY - RIGHT KNEE REASON FOR EXAM: Female, 24 years old. Acute pain after trauma TECHNIQUE: 4 view(s) of the knee. COMPARISON: None. FINDINGS: Normal visualized distal femur. Normal visualized proximal tibia and fibula. Normal proximal tibiofibular articulation. There is an acute, osteochondral fracture in the waist of the patella with associated soft tissue swelling Normal medial femorotibial compartment. Normal lateral femorotibial compartment. Normal patellofemoral articulation. RAD/Knee 4 or More Views IMPRESSION: Acute osteochondral fracture in the waist of the patella with associated soft tissue swelling Electronically Signed: Chato Sidhu MD at 12:44 EST ,
[2024-05-31 12:58] VITALS: BP 129/73; PULSE 71; RESP 15; TEMP 36.3; O2SAT 98
== END 2024-05-31 12:59 | disposition home or self-care (01) ==
PROVIDERS: Emergency Provider Emergency Medicine; Visit Provider Emergency Medicine
DX: S82.034A Nondisplaced transverse fracture of right patella, initial encounter for closed fracture (principal); F17.290 Nicotine dependence, other tobacco product, uncomplicated; K21.9 Gastro-esophageal reflux disease without esophagitis; W19.XXXA Unspecified fall, initial encounter
CPT/HCPCS: 73564; 99284